=== PATIENT | male | born 1985 | race Hispanic/Latino ===

== ENCOUNTER 2018-12-02 14:08 | Emergency (ER) | payer SELFPAY ==
[2018-12-02] MEDS ORDERED: Fluorescein Opthalmic Strip ONE (14:31)
== END 2018-12-02 15:00 | disposition home or self-care (01) ==
LOC: NAV ERS 14:08
DX: H11.32 Conjunctival hemorrhage, left eye (principal); S00.81XA Abrasion of other part of head, initial encounter; V49.50XA Passenger injured in collision with unspecified motor vehicles in traffic accident, initial encounter
CPT/HCPCS: 99283

== ENCOUNTER 2022-07-27 13:30 | Emergency (ER) | payer OTHER, SELFPAY ==
[2022-07-27] MEDS ORDERED: Lidocaine 1% (PF) 30 ML VIAL ONE (13:46)
[2022-07-27] MEDS ORDERED: Bacitracin 1 PK ONE (13:59)
== END 2022-07-27 14:05 | disposition home or self-care (01) ==
LOC: NAV ERS 13:30
DX: S61.216A Laceration without foreign body of right little finger without damage to nail, initial encounter (principal); W26.8XXA Contact with other sharp object(s), not elsewhere classified, initial encounter
CPT/HCPCS: 12001; J2001